=== PATIENT | female | born 1950 | race Two or more races ===

== ENCOUNTER 2023-04-27 10:38 | Emergency (ER) | payer OTHER ==
[~2023-04-27] VITALS: Ht 160 cm; Wt 69.9 kg
[2023-04-27] MEDS ORDERED: TOPROL XL25 M1 (11:13)
[2023-04-27] MEDS ORDERED: VASOTEC20 M1 PO (11:13)
[2023-04-27] MEDS ORDERED: ECOTRIN325 M1 (11:13)
[2023-04-27] MEDS ORDERED: PRILOSEC OTC20 MG (11:14)
[2023-04-27] MEDS ORDERED: FOSAMAX70 MG PO (11:14)
[2023-04-27] MEDS ORDERED: SIMVASTATIN20 MG PO (11:14)
[2023-04-27] MEDS ORDERED: RISPERDAL1 MG (11:15)
[2023-04-27] MEDS ORDERED: GABAPENTIN100 M2 PO (11:15)
[2023-04-27] MEDS ORDERED: GABAPENTIN300 M2 PO (11:16)
== END 2023-04-27 17:14 | disposition home or self-care (01) ==
LOC: ER 10:38
DX: S63.275A Dislocation of unspecified interphalangeal joint of left ring finger, initial encounter (principal); W18.39XA Other fall on same level, initial encounter; Z91.81 History of falling; Y93.89 Activity, other specified; Y92.018 Other place in single-family (private) house as the place of occurrence of the external cause; M19.90 Unspecified osteoarthritis, unspecified site; M81.8 Other osteoporosis without current pathological fracture; E11.9 Type 2 diabetes mellitus without complications; I10 Essential (primary) hypertension; Z88.6 Allergy status to analgesic agent